=== PATIENT | female | born 1995 | race Caucasian/White ===

== ENCOUNTER 2024-02-12 13:21 | Emergency (ER) | payer BC ==
[2024-02-12 13:40] LABS: BASOPHILS ABSOLUTE AUTO 0.01 K/uL (0.00-0.20); BASOPHILS PERCENT AUTO 0.1 % (0.0-2.0); EOSINOPHILS ABSOLUTE AUTO 0.03 K/uL (0.00-0.50); EOSINOPHILS PERCENT AUTO 0.4 % (0.0-5.0); HEMATOCRIT 37.2 % (34.0-46.0); LYMPHOCYTES ABSOLUTE AUTO 1.69 K/uL (0.50-3.50); LYMPHOCYTES PERCENT AUTO 21.1 % (10.0-50.0); MEAN CORPUSCULAR HEMOGLOBIN 28.2 pg (28.2-33.3); MEAN CORPUSCULAR HGB CONC 34.9 g/dL (31.7-36.0); MEAN CORPUSCULAR VOLUME 80.7 fL (84.0-98.0); MONOCYTES ABSOLUTE AUTO 0.64 K/uL (0.00-1.00); NEUTROPHILS ABSOLUTE AUTO 5.63 K/uL (1.40-7.00); NEUTROPHILS PERCENT AUTO 70.4 % (45.0-80.0); PLATELET COUNT,PLT 246 K/uL (150-350); RED BLOOD CELL COUNT 4.61 M/uL (3.77-5.09); RED CELL DISTRIBUTION WIDTH 12.7 % (11.2-14.1)
[2024-02-12] MEDS ORDERED: Iopamidol 612 MG/ML 100 ML Bottle ONE (14:00)
[2024-02-12 14:03] LABS: ALBUMIN 3.7 g/dL (3.4-5.0); ANION GAP 10.2 meq/L (7-15); BILIRUBIN TOTAL 0.4 mg/dL (0.2-1.0); CALCIUM 8.5 mg/dL (8.5-10.1); CARBON DIOXIDE,CO2 25.8 mmol/L (21.0-32.0); CREATININE 0.97 mg/dL (0.51-1.17); EST CRCL DRUG DOSING (CG) 76.31 mL/min; POTASSIUM,K 4.1 mmol/L (3.5-5.1); PROTEIN TOTAL,TP 7.2 g/dL (6.4-8.2)
[2024-02-12] MEDS ORDERED: Naloxone 0.4 MG/ML SDV IVPUSH PRN ×2 (14:04→14:35)
[2024-02-12 14:07] LABS: PROTHROMBIN TIME 10.2 SEC (9.0-11.1)
[2024-02-12] MEDS: Ondansetron 4 MG/2 ML SDV IVPUSH ONE (14:08)
[2024-02-12] MEDS: fentaNYL 50 MCG/ML SDV IVPUSH ONE ×2 (14:09→14:37)
[2024-02-12] MEDS: Sodium Chloride 0.9% 10 ML Syringe FLUSH PRN (14:10)
== END 2024-02-12 14:59 ==
LOC: LL.ED 13:21
DX: G98.8 Other disorders of nervous system (principal); Z88.0 Allergy status to penicillin; V80.010A Animal-rider injured by fall from or being thrown from horse in noncollision accident, initial encounter
CPT/HCPCS: 36415; 70450; 71260; 72125; 74177; 80053; 83690; 84484; 84703; 85025; 85610; 93005; 96374; 96375; 99285-25; J2405; J3010; J3490; Q9967